=== PATIENT | male | born 2000 | race Caucasian/White ===

== ENCOUNTER 2020-07-01 14:44 | Emergency (ER) | payer OTHER ==
[2020-07-01 15:00] VITALS: BP 150/92
[2020-07-01] MEDS ORDERED: BUFFERED LIDOCAINE 10 ML SYRINGE SUBQ STA (15:10)
[2020-07-01] MEDS ORDERED: BACITRACIN ZINC OINT 1 PACKET TOP STA (15:11)
--- NOTE | 2020-07-01 15:14 | ED Physician Documentation ---
History of Present Illness - Stated complaint Stated Complaint: HEAD LAC - Chief complaint Chief Complaint: Laceration - Additonal information Additional information: 19-year-old male presents the emergency department for evaluation of a lac eration above his right eyebrow that was sustained when pulling carpet at his work. There was a hammer on the ground and when he pulled the carpet the hammer hit him above the eye. Initially he did not think that there was any injury until he noticed blood was dripping down his face. He did not have any loss of consciousness. No anticoagulation. Bleeding is controlled with pressure. Last tetanus 2019. Denies any pertinent past medical history Review of Systems Constitutional: reports: Reviewed and negative Eyes: denies: Loss of vision, Decreased vision, Photophobia Ears: reports: Reviewed and negative Nose: reports: Reviewed and negative Throat: reports: Reviewed and negative Cardiac: reports: Reviewed and negative Respiratory: reports: Reviewed and negative Skin: reports: Laceration (s) (5 cm laceration) Musculoskeletal: reports: Reviewed and negative PD PAST MEDICAL HISTORY - Present Medications Home Medications: Ambulatory Orders Medication Instructions Recorded Confirmed Buspirone HCl 20 mg PO BID 07/01/20 07/01/20 - Allergies Allergies/Adverse Reactions: Allergies Allergy/AdvReac Type Severity Reaction Status Date / Time No Known Drug Allergies Allergy Verified 07/01/20 15:00 PD ED PE EXPANDED - General General: Alert, No acute distress - HEENT HEENT: Head injury, PERRL, EOMI HEENT Visual: 1 - laceration - Cardiac Cardiac: Regular Rate, Radial strong equal, Pedal strong equal - Derm Derm: Normal color, Warm and dry, Laceration(s) (5 cm laceration above the right eyebrow.) - Neuro Neuro: Alert and Oriented X 3, CNII-XII intact, Cerebellar nl, Normal gait, Normal finger nose, Normal speech - GCS Eye Opening: Spontaneous Motor: Obeys Commands Verbal: Oriented Total: 15 Results - Vitals Vitals: Vital Signs - 24 hr 07/01/20 14:56 Temperature 36.3 C L Heart Rate 61 Respiratory 14 Rate Blood Pressure 150/92 H O2 Saturation 99 Oxygen O2 Source Room air Procedures - Laceration (location) right forehead Length in cm: 5 Wound type: Linear Neurovascular status: Sensory intact, Motor intact Tendon involvement: Tendon intact Anesthesia: Lidocaine 1% Wound preparation: Chlorhexadine, Irrigated copiously NS Skin layer closure: Nylon, Interrupted, Size #-0 - enter number (5), Sutures - enter # (7) Other: Patient tolerated well, No complications, Neurovascular intact, Tetanus UTD PD MEDICAL DECISION MAKING - ED course Complexity details: reviewed results, re-evaluated patient, d/w patient ED course: 19-year-old male presents to the emergency department for evaluation of a laceration to the right forehead sustained while at work when a hammer hit his head when he was pulling up carpet. No loss of consciousness. No findings on physical exam to suggest an orbital skull fracture. Imaging deferred. Wound easily closed with 7 interrupted sutures. Routine wound care emergent return precautions discussed L&I paperwork filled out. Patient is cleared to return to work tomorrow. Departure - Departure Disposition: 01 Home, Self Care Clinical Impression: Laceration of head Qualifiers: Encounter type: initial encounter Location of open wound of head: other part of head Foreign body presence: without foreign body Qualified Code(s): S01.81XA - Laceration without foreign body of other part of head, initial encounter Condition: Stable Record reviewed to determine appropriate education?: Yes Instructions: ED Laceration Sure Close Comments: Your sutures should be removed in 7 days. In 24 hours you may remove the dressing wash gently with warm soap and water, apply any antibiotic ointment and a simple bandage. Your tetanus is up-to-date. Please attempt to keep your wound clean and dry. Do not submerge it in dirty dishwater or bath water. Return to the emergency department if you have any concerns of infection such as redness, fevers milky drainage increased pain.
== END 2020-07-01 16:18 | disposition home or self-care (01) ==
LOC: ED 14:44
DX: S01.81XA Laceration without foreign body of other part of head, initial encounter (principal); W20.8XXA Other cause of strike by thrown, projected or falling object, initial encounter; Y93.H3 Activity, building and construction; Y99.0 Civilian activity done for income or pay
CPT/HCPCS: 1040M; 12013; 99282; A9270

== ENCOUNTER 2020-07-06 16:22 | Emergency (ER) | payer OTHER ==
[2020-07-06 16:26] VITALS: BP 141/78
--- NOTE | 2020-07-06 16:40 | ED Physician Documentation ---
PD HPI SKIN - Stated complaint Stated Complaint: SUTURE REMOVAL - Chief complaint Chief Complaint: Laceration - History obtained from History obtained from: Patient - Additional information Additional information: Patient comes emergency department for suture removal 5 days after having sutures placed above right eyebrow. Patient states the wound has been healing well. No redness or increasing swelling. No dehiscence or drainage. No fevers or chills. No other complaints at this time. Review of Systems Ten Systems: 10 systems reviewed and negative Constitutional: reports: Reviewed and negative Eyes: reports: Reviewed and negative Ears: reports: Reviewed and negative Nose: reports: Reviewed and negative Throat: reports: Reviewed and negative Cardiac: reports: Reviewed and negative Respiratory: reports: Reviewed and negative GI: reports: Reviewed and negative : reports: Reviewed and negative Skin: reports: Laceration (s) (Sutured) Musculoskeletal: reports: Reviewed and negative Neurologic: reports: Reviewed and negative Psychiatric: reports: Reviewed and negative Endocrine: reports: Reviewed and negative Immunocompromised: reports: Reviewed and negative PD PAST MEDICAL HISTORY - Past Medical History Past Medical History: Yes Psych: Anxiety - Past Surgical History Past Surgical History: No - Present Medications Home Medications: Ambulatory Orders Medication Instructions Recorded Confirmed Buspirone HCl 20 mg PO BID 07/01/20 07/06/20 - Allergies Allergies/Adverse Reactions: Allergies Allergy/AdvReac Type Severity Reaction Status Date / Time No Known Drug Allergies Allergy Verified 07/06/20 16:26 - Social History Does the pt smoke?: Yes Smoking Status: Current every day smoker Does the pt drink ETOH?: No Does the pt have substance abuse?: Yes - Immunizations Immunizations are current?: Yes PD ED PE NORMAL - Vitals Vital signs reviewed: Yes - General General: Alert and oriented X 3, No acute distress - HEENT HEENT: PERRL, EOMI, Moist mucous membranes, Other (Well-healed laceration above patient's right eyebrow with [address]. Wound is clean dry and intact. 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 No wound dehiscence. No drainage. We have discussed wound management home and the usual indications for return. Departure - Departure Disposition: 01 Home, Self Care Condition: Stable Instructions: ED Wound Check Sutr Remove No Infec
== END 2020-07-06 16:42 | disposition home or self-care (01) ==
LOC: ED 16:22
DX: S01.111D Laceration without foreign body of right eyelid and periocular area, subsequent encounter (principal); X58.XXXD Exposure to other specified factors, subsequent encounter; Z48.02 Encounter for removal of sutures; F17.200 Nicotine dependence, unspecified, uncomplicated
CPT/HCPCS: 99281

== ENCOUNTER 2022-02-09 17:57 | Emergency (ER) | payer OTHER, BC ==
[2022-02-09 18:16] VITALS: BP 149/66
--- NOTE | 2022-02-09 19:17 | ED Physician Documentation ---
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 He was knocking out a window frame today and broke a window pain and lacerations on his dominant right thumb and middle finger. This was a work- related injury. Review of Systems Constitutional: reports: Reviewed and negative Cardiac: reports: Reviewed and negative Respiratory: reports: Reviewed and negative PD PAST MEDICAL HISTORY - Past Medical History Psych: Anxiety - Past Surgical History Past Surgical History: No - Present Medications Home Medications: Ambulatory Orders Medication Instructions Recorded Confirmed Buspirone HCl 20 mg PO BID 07/01/20 07/06/20 - Allergies Allergies/Adverse Reactions: Allergies Allergy/AdvReac Type Severity Reaction Status Date / Time No Known Drug Allergies Allergy Verified 02/09/22 18:16 - Social History Does the pt smoke?: Yes Smoking Status: Current every day smoker Does the pt drink ETOH?: No Does the pt have substance abuse?: Yes - Immunizations Immunizations are current?: Yes PD ED PE NORMAL - Vitals Vital signs reviewed: Yes - General General: Alert and oriented X 3, No acute distress - Extremities Extremities: Other (On the dorsum of the right third finger there is a 2 cm curved laceration at the level of the PIP without distal neurovascular compromise or tendon injury. There is a pulp laceration on the right thumb without nail involvement measuring 2 cm.) - Neuro Neuro: Alert and oriented X 3, Normal speech Results - Vitals Vitals: Vital Signs - 24 hr 02/09/22 18:13 Temperature 36.2 C L Heart Rate 62 Respiratory 16 Rate Blood Pressure 149/66 H O2 Saturation 100 Oxygen O2 Source Room air Procedures - Laceration (location) Right middle finger Length in cm: 3 Wound type: Irregular, Flap Neurovascular status: Sensory intact, Motor intact, Vascular intact Anesthesia: Lidocaine 1% Wound preparation: Irrigated copiously NS Skin layer closure: Nylon, Interrupted, Size #-0 - enter number (5-0), Sutures - enter # (5) Other: Patient tolerated well, No complications, Neurovascular intact, Tetanus UTD Right thumb Length in cm: 2 Wound type: Curved, Flap Neurovascular status: Sensory intact, Motor intact, Vascular intact Anesthesia: Lidocaine 1% Wound preparation: Irrigated copiously NS Skin layer closure: Nylon, Interrupted, Size #-0 - enter number (5-0), Sutures - enter # (5) Other: Patient tolerated well, No complications, Neurovascular intact, Tetanus UTD PD MEDICAL DECISION MAKING - ED course ED course: L&I paperwork [id number] completed and filed Departure - Departure Disposition: 01 Home, Self Care Clinical Impression: Laceration of right thumb Qualifiers: Encounter type: initial encounter Damage to nail status: without damage Foreign body presence: without foreign body Qualified Code(s): S61.011A - Laceration without foreign body of right thumb without damage to nail, initial encounter Laceration of right middle finger Qualifiers: Encounter type: initial encounter Damage to nail status: without damage Foreign body presence: without foreign body Qualified Code(s): S61.212A - Laceration without foreign body of right middle finger without damage to nail, initial encounter Condition: Good Record reviewed to determine appropriate education?: Yes Instructions: ED Laceration Hand Comments: Come back for any signs of infection which would include: Redness, swelling, drainage, increased pain, or fevers. You can wash it soap and water. Keep it covered and moist with bacitracin ointment which is available over the counter; avoid neosporin. Follow-up with your physician in About 14 days for suture removal. You can also use the splints as shown by your nurse to protect from motion related injuries related to the lacerations. Forms: Activity restrictions
== END 2022-02-09 19:57 | disposition home or self-care (01) ==
LOC: ED 17:57
DX: S61.011A Laceration without foreign body of right thumb without damage to nail, initial encounter (principal); S61.212A Laceration without foreign body of right middle finger without damage to nail, initial encounter; W25.XXXA Contact with sharp glass, initial encounter; Y93.H3 Activity, building and construction; Y99.0 Civilian activity done for income or pay; F17.200 Nicotine dependence, unspecified, uncomplicated
CPT/HCPCS: 1040M; 12002; 99282

== ENCOUNTER 2022-02-23 12:36 | Emergency (ER) | payer BC ==
[2022-02-23 13:06] VITALS: BP 147/92
--- NOTE | 2022-02-23 13:20 | ED Physician Documentation ---
PD HPI WOUND RECHECK - Stated complaint Stated Complaint: STITCH REMOVAL - Chief complaint Chief Complaint: Laceration - Histroy obtained from History obtained from: Patient - History of Present Illness Pain level max: 0 Pain level now: 0 Associated symptoms: No: Fever, Redness, Swelling, Pain - Additional information Additional information: 21-year-old male here requesting suture removal from the right thumb and right third digit. These were placed on 02/09. No complaints No fevers. No redness. No swelling. No drainage. No pain. Review of Systems Constitutional: denies: Fever PD PAST MEDICAL HISTORY - Past Medical History Past Medical History: No Psych: Anxiety - Past Surgical History Past Surgical History: No - Present Medications Home Medications: Ambulatory Orders Medication Instructions Recorded Confirmed cloNIDine [Catapres] 0.2 mg PO ONCE 02/23/22 02/23/22 lamoTRIgine [LaMICtal] 100 mg PO DAILY 02/23/22 02/23/22 - Allergies Allergies/Adverse Reactions: Allergies Allergy/AdvReac Type Severity Reaction Status Date / Time No Known Drug Allergies Allergy Verified 02/09/22 18:16 - Social History Does the pt smoke?: Yes Smoking Status: Current every day smoker Does the pt drink ETOH?: No Does the pt have substance abuse?: Yes - Immunizations Immunizations are current?: Yes - POLST Patient has POLST: No PD ED PE NORMAL - Vitals Vital signs reviewed: Yes - General General: Alert and oriented X 3, No acute distress - Extremities Extremities: Other (Sutures in place in the right thumb and right third digit. No signs of infection.) Results - Vitals Vitals: Vital Signs - 24 hr 02/23/22 13:03 Temperature 36.3 C L Heart Rate 58 L Respiratory 18 Rate Blood Pressure 147/92 H O2 Saturation 100 Oxygen O2 Source Room air PD MEDICAL DECISION MAKING - ED course Complexity details: considered differential, d/w patient ED course: Sutures were removed by the nurse. All sutures removed. No signs of infection. This document was made in part using voice recognition software. While efforts are made to proofread this document, sound alike and grammatical errors may occur. Departure - Departure Disposition: 01 Home, Self Care Clinical Impression: Visit for suture removal Condition: Good Instructions: ED Wound Check Sutr Remove No Infec Follow-Up: Young,Louisa L, PA-C [Primary Care Provider] - Comments: Please follow-up with your doctor as needed for further care. Keep the wounds clean. Return for redness, swelling or drainage from the wound.
== END 2022-02-23 13:30 | disposition home or self-care (01) ==
LOC: ED 12:36
DX: S61.011D Laceration without foreign body of right thumb without damage to nail, subsequent encounter (principal); S61.214D Laceration without foreign body of right ring finger without damage to nail, subsequent encounter; X58.XXXD Exposure to other specified factors, subsequent encounter
CPT/HCPCS: 99281

== ENCOUNTER 2022-04-10 21:21 | Emergency (ER) | payer BC ==
[2022-04-10 21:42] VITALS: BP 147/72
== END 2022-04-10 22:43 | disposition left against medical advice (07) ==
LOC: ED 21:21
DX: Z53.21 Procedure and treatment not carried out due to patient leaving prior to being seen by health care provider (principal)